=== PATIENT | male | born 1955 | race African-American/Black ===

== ENCOUNTER 2017-08-20 15:02 | Emergency (ER) | payer OTHER ==
[~2017-08-20] VITALS: Ht 172.7 cm; Wt 62.7 kg
[2017-08-20] MEDS ORDERED: IBUP-1506 PO (15:18)
[2017-08-20] MEDS ORDERED: OXYC10 PO (15:18)
[2017-08-20] MEDS ORDERED: IBUPROFEN 800 MG TABLET PO ONE (17:15)
[2017-08-20] MEDS ORDERED: SILVER SULFADIAZINE 1% 25 GM CREAM TP ONE (17:15)
[2017-08-20 17:40] VITALS: BP 141/91
== END 2017-08-20 17:42 | disposition home or self-care (01) ==
LOC: EMS 15:04
DX: T23.272A Burn of second degree of left wrist, initial encounter (principal); Z79.899 Other long term (current) drug therapy; X16.XXXA Contact with hot heating appliances, radiators and pipes, initial encounter; Y93.89 Activity, other specified; Y92.810 Car as the place of occurrence of the external cause; Y99.8 Other external cause status
CPT/HCPCS: 16020; 99284

== ENCOUNTER 2018-04-21 23:05 | Emergency (ER) | payer OTHER ==
[~2018-04-21] VITALS: Ht 172.7 cm; Wt 60.9 kg
[~2018-04-21 23:05] MED LIST: IBUP-1506 PO; OXYC10 PO
[2018-04-22 03:12] VITALS: BP 148/97
== END 2018-04-22 03:19 | disposition home or self-care (01) ==
LOC: EMS 23:05
DX: S06.0X0A Concussion without loss of consciousness, initial encounter (principal); S13.4XXA Sprain of ligaments of cervical spine, initial encounter; S00.83XA Contusion of other part of head, initial encounter; R04.0 Epistaxis; M19.90 Unspecified osteoarthritis, unspecified site; Y04.0XXA Assault by unarmed brawl or fight, initial encounter; Y93.89 Activity, other specified; Y92.69 Other specified industrial and construction area as the place of occurrence of the external cause; Y99.0 Civilian activity done for income or pay
CPT/HCPCS: 70450; 72125

== ENCOUNTER 2018-04-27 07:56 | Emergency (ER) | payer OTHER ==
[~2018-04-27] VITALS: Ht 170.2 cm; Wt 60.9 kg
[2018-04-27] MEDS ORDERED: HYDROCODONE/ACETAMINOPHEN 5-325 MG TABLET PO ONE (10:00)
[2018-04-27 12:14] VITALS: BP 151/98
== END 2018-04-27 12:18 | disposition home or self-care (01) ==
LOC: EMS 07:56
DX: S50.311A Abrasion of right elbow, initial encounter (principal); M25.531 Pain in right wrist; M25.512 Pain in left shoulder; M54.2 Cervicalgia; M19.90 Unspecified osteoarthritis, unspecified site; Y04.2XXA Assault by strike against or bumped into by another person, initial encounter; Y93.89 Activity, other specified; Y92.89 Other specified places as the place of occurrence of the external cause; Y99.0 Civilian activity done for income or pay
CPT/HCPCS: 29105; 72040